=== PATIENT | female | born 1975 | race Caucasian/White ===

== ENCOUNTER 2019-10-03 22:19 | Emergency (ER) | payer SELFPAY ==
[~2019-10-03] VITALS: Ht 144.8 cm; Wt 57.0 kg
[2019-10-04] MEDS ORDERED: VISCOUS LIDOCAINE 2% 15 ML UDC MM PRN (00:45)
[2019-10-04 01:23] LABS: HEMATOCRIT. 42.1 % (36.0-48.0); HEMOGLOBIN. 14.4 g/dL (12.0-16.0); MEAN CORPUSCULAR HEMOGLOBIN 29.8 pg (28.0-32.0); MEAN CORPUSCULAR VOLUME 86.7 fL (81.0-99.0); MEAN PLATELET VOLUME 8.7 fl (7.4-10.4); MONOCYTES % 7.4 % (2.0-8.0); NEUTROPHILS % 47.6 % (40.0-76.0); PLATELET 320 x1000/uL (130-400); RED BLOOD CELL COUNT 4.86 mill/uL (4.2-5.4); RED CELL DISTRIBUTION WIDTH 12.5 % (11.6-14.6)
[2019-10-04 01:29] LABS: CHLORIDE 106 mEq/L (98-107)
[2019-10-04 04:22] VITALS: BP 124/85
== END 2019-10-04 04:23 | disposition home or self-care (01) ==
LOC: ER 22:19
DX: T17.208A Unspecified foreign body in pharynx causing other injury, initial encounter (principal); I10 Essential (primary) hypertension; E11.9 Type 2 diabetes mellitus without complications; X58.XXXA Exposure to other specified factors, initial encounter; Y93.89 Activity, other specified; Y92.018 Other place in single-family (private) house as the place of occurrence of the external cause
CPT/HCPCS: 36415; 70490; 71250; 74150; 80053; 81025; 85025; 99284